=== PATIENT | female | born 1990 | race African-American/Black ===

== ENCOUNTER 2017-02-08 10:17 | Emergency (ER) | payer OTHER ==
[~2017-02-08] VITALS: Ht 162.6 cm; Wt 62.0 kg
[2017-02-08] MEDS ORDERED: IBUP-1509 PO (10:26)
[2017-02-08] MEDS ORDERED: FLUORESCEIN SODIUM 1MG/STRIP OP ONE (14:30)
[2017-02-08] MEDS ORDERED: TETRACAINE 0.5% OPHTH DROPS 4ML OP ONE (14:30)
[2017-02-08 15:48] VITALS: BP 122/56
== END 2017-02-08 18:10 | disposition home or self-care (01) ==
LOC: ER 10:18
DX: S02.31XA Fracture of orbital floor, right side, initial encounter for closed fracture (principal); Y09 Assault by unspecified means; Y93.89 Activity, other specified; Y92.89 Other specified places as the place of occurrence of the external cause; Y99.8 Other external cause status
CPT/HCPCS: 70486; 81025; 99284